=== PATIENT | female | born 1960 | race Caucasian/White ===

== ENCOUNTER → 2019-11-23 10:13 | Outpatient (CLI) | payer OTHER, SELFPAY ==
--- NOTE | 2019-11-23 10:16 | DI.US.S_ITS ---
ULTRASOUND OF RIGHT BREAST: 11/23/2019 CLINICAL: Palpable right breast lump. Comparison is made to exams dated: 11/23/2019 mammogram - [facility], 08/31/2018 mammogram, and 02/19/2017 mammogram - [facility]. Color flow and real-time ultrasound of the right breast were performed. Mukherjee scale images of the real-time examination were reviewed. There is a 1.2 cm x 1.3 cm x 1.1 cm oval cyst in the right breast at 8:30 o'clock middle depth 3 cm from the nipple. This oval cyst is hypoechoic with a well-defined boundary, internal echoes, and posterior acoustic enhancement. This correlates with mammography findings. Color flow imaging demonstrates that there is no vascularity present. There also is a 0.9 cm x 0.7 cm x 0.7 cm oval cyst in the right breast at 9:30 o'clock anterior depth 3 cm from the nipple. This oval cyst is hypoechoic with internal echoes and posterior acoustic enhancement. Color flow imaging demonstrates that there is no vascularity present. IMPRESSION: PROBABLY BENIGN The 1.2 cm x 1.3 cm x 1.1 cm oval cyst in the right breast at 8:30 o'clock middle depth likely represents a complicated cyst and is probably benign. The 0.9 cm x 0.7 cm x 0.7 cm oval cyst in the right breast at 9:30 o'clock anterior depth likely represents a complicated cyst and is probably benign. A follow-up right mammogram and an ultrasound in 6 months is recommended to demonstrate stability. Patient was notified of the results during today's visit. This exam was interpreted at Station ID: [id number]. Electronically Signed By: Steven rosas/:11/23/2019 12:20:14 letter sent: Followup Recommended Ultrasound BI-RADS: 3 Probably benign
--- NOTE | 2019-11-23 10:16 | DI.MG.S_ITS ---
UNILATERAL RIGHT DIGITAL DIAGNOSTIC MAMMOGRAM 3D/2D POST MASTECTOMY: 11/23/2019 CLINICAL: Right breast lump. Comparison is made to exams dated: 08/31/2018 mammogram, 02/19/2017 mammogram, and 03/20/2016 mammogram - [facility]. The tissue of right breast is extremely dense, which lowers the sensitivity of mammography. There is a biopsy site marker on the right breast in the posterior depth. There are stable benign calcifications in the right breast. There is a 1.3 cm oval equal density focal asymmetry in the right breast at 9 o'clock middle depth. This is more prominent. No other significant masses or calcifications are seen in the breast. IMPRESSION: INCOMPLETE: NEEDS ADDITIONAL IMAGING EVALUATION The 1.3 cm oval equal density focal asymmetry in the right breast is indeterminate. An ultrasound is recommended. There is no abnormality seen in the right breast to correspond with the area of clinical concern and palpable abnormality indicated by triangular marker at 6 o'clock in the middle depth, however, ultrasound is recommended. The recommended breast ultrasound is scheduled to immediately follow this examination. This exam was interpreted at Station ID: [id number]. NOTE: For mammograms, a report in lay terms will be sent to the patient. Approximately 15% of breast malignancies will not be visualized mammographically. In the management of a palpable breast mass, a negative mammogram must not discourage biopsy of a clinically suspicious lesion. Electronically Signed By: Steven Chen M.D. aty/:11/23/2019 12:13:43 ACR BI-RADS Category 0: Incomplete [id number]
== END ==
PROVIDERS: PCP Family Medicine; Referring Provider Obstetrics & Gynecology; Visit Provider Obstetrics & Gynecology
DX: R92.8 Other abnormal and inconclusive findings on diagnostic imaging of breast (principal); N63.14 Unspecified lump in the right breast, lower inner quadrant; N60.01 Solitary cyst of right breast
CPT/HCPCS: 76642; 77065; G0279

== ENCOUNTER → 2020-02-15 11:35 | Outpatient (CLI) | payer OTHER, SELFPAY ==
--- NOTE | 2020-02-15 11:37 | DI.MRI.S_ITS ---
BREAST MRI OF BOTH BREASTS- POST MASTECTOMY: 02/15/2020 CLINICAL: Solitary cyst of unspecified breast. TECHNIQUE: The patient was placed prone in a dedicated breast imaging coil. Precontrast axial STIR and 3D FLASH without fat saturation sequences were obtained. Both before and after bolus injection of contrast, sequential 1-minute axial 3D FLASH with fat saturation sequences for 3 time points, with subtraction images and maximum intensity projections (MIP's) generated. Delayed sagittal FLASH images with fat saturation were also obtained. Computer-aided detection, including computer algorithm analysis of MRI image data for lesion detection and characterization, pharmacokinetic analysis, with further physician review for interpretation, was performed. COMPARISON: 11/23/2019 ultrasound, 11/23/2019 mammogram - [facility], 08/31/2018 mammogram, 02/19/2017 mammogram, 02/19/2017 ultrasound - [facility], and 02/07/2015 breast MRI - [facility]. FINDINGS: Image quality: Excellent. There is mild background parenchymal enhancement. There is heterogeneous fibroglandular breast tissue in the right breast. Right breast: There are numerous scattered simple cysts as before. Redemonstration of two adjacent cysts with thin rim enhancement and slight intrinsically high T1 signal intensity on the precontrast images consistent with proteinaceous or hemorrhagic material. No internal solid components or internal enhancement. The larger one is noted at the 8:30 o'clock position and middle depth measuring approximately 13 mm in maximum dimension and the smaller one is noted at the 9:30 o'clock position middle depth measuring approximately 10mm in maximum dimension. These correlate with the probably benign, complicated cysts seen on diagnostic evaluation dated 11/23/2019 and have not changed significantly in size. Otherwise, no suspicious mass, non-mass enhancement or architectural distortion noted. A biopsy marker is noted in close proximity to the anterior margin of the 8:30 o'clock cyst correlating with mammogram findings. No suspicious skin or nipple abnormalities noted. Left breast: Status post left mastectomy. No suspicious mass or enhancement noted in the left chest. Miscellaneous: No axillary or internal mammary chain adenopathy. Visualized portions of the chest and upper abdomen are unremarkable. Normal bone marrow signal intensity. IMPRESSION: PROBABLY BENIGN 1. There are two persistent cysts noted in the right breast at the 8:30 o'clock position and 9:30 o'clock position which likely represent complicated cysts with internal proteinaceous/hemorrhagic material. These are relatively stable in size compared to diagnostic mammographic/sonographic evaluation dated 11/23/19 and are probably benign. Recommend followup mammogram and ultrasound in 3 months to maintain six-month followup interval from previous imaging evaluation. Also recommend continued clinical surveillance. 2. Status post left mastectomy. BIRADS 3, probably benign COMMENT: The imaging literature indicates that a negative contrast breast MRI examination has a high sensitivity and a moderate specificity for detecting and excluding invasive carcinomas to a detection threshold of 3-5 mm; nonetheless, appropriate clinical and mammographic follow-up are recommended. MRI is not sensitive for detecting DCIS (ductal carcinoma in situ) and may not detect large invasive neoplasms that show only minimal enhancement such as mucinous carcinoma. If there are suspicious calcifications or clinically worrisome palpable masses, then biopsy should still be considered. Invasive neoplasms can be hidden by co-existent and benign enhancement caused by mastitis, hormone therapy effects, radiation therapy, , and recent biopsy or surgery. False positive examinations can occur in a number of circumstances, including breasts that have recently been subject to invasive procedures and those that contain atypical ductal hyperplasia, hormonally stimulated glandular tissue, fat necrosis, or radial scars. A follow-up right mammogram and an ultrasound in 3 months is recommended. This exam was interpreted at Station ID: [id number]. Electronically Signed By: Steven Chen M.D. aty/:02/15/2020 17:00:41 letter sent: Followup Recommended ACR BI-RADS Category 3: Probably benign [id number]
== END ==
PROVIDERS: PCP Family Medicine; Referring Provider Obstetrics & Gynecology; Visit Provider Obstetrics & Gynecology
DX: N60.01 Solitary cyst of right breast (principal); Z90.12 Acquired absence of left breast and nipple
CPT/HCPCS: 77049; A9579